=== PATIENT | male | born 2005 | race Caucasian/White ===

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

== ENCOUNTER 2023-05-03 11:01 | Emergency (ER) | payer MEDICAID ==
[~2023-05-03] VITALS: Ht 165.1 cm; Wt 73.4 kg
[~2023-05-03 11:01] MED LIST: ACET5SOL5 PO; AZIT200S47 PO; IBUP100S73 PO; MUPI2CRE17 EX
[2023-05-03 11:18] VITALS: PULSE 66; RESP 19; O2SAT 98
[2023-05-03 12:01] LABS: Basophils # (auto) 0 10 ^3/uL (0-0.2); Basophils % (auto) 0.2 % (0.0-2.0); Eosinophils # (auto) 0.1 10 ^3/uL (0-0.8); Eosinophils % (auto) 1.6 % (0.0-7.0); Hematocrit 37.2 % (41.0-53.0); Hemoglobin 12.8 g/dL (13.5-17.5); Lymphocytes # (auto) 2.9 10 ^3/uL (0.4-5.4); Lymphocytes % (auto) 34.8 % (10.0-50.0); Mean Corpuscular Hgb Conc. 34.4 g/dL (32.0-36.0); Mean Corpuscular Volume 95.9 fL (80.0-100.0); Monocytes # (auto) 0.7 10 ^3/uL (0-1.3); Monocytes % (auto) 8.6 % (0.0-12.0); Neutrophils # (auto) 4.6 10 ^3/uL (1.6-8.6); Neutrophils % (auto) 54.8 % (37.0-80.0); Nucleated Red Blood Cells % 0.1 %; Red Blood Cells 3.87 10^6/uL (4.5-5.90); Red Cell Distribution Width 16.6 % (11.8-14.3); White Blood Cell 8.4 10^3/uL (4.4-10.8)
[2023-05-03 12:15] LABS: Alanine Aminotransferase 23 U/L (7-40); Albumin 3.7 g/dL (3.2-4.8); Alkaline Phosphatase 51 U/L (46-116); Anion Gap 4 (5-15); Aspartate Aminotransferase 18 U/L (13-40); BUN/Creatinine Ratio 16.1 (10.0-20.0); Bilirubin, Total 0.7 mg/dL (0.2-1.0); Blood Urea Nitrogen 15 mg/dL (9-23); Calcium 8.9 mg/dL (8.7-10.4); Carbon Dioxide 32 mmol/L (20-30); Chloride 106 mmol/L (98-107); Glucose 133 mg/dL (74-106); Potassium 3.6 mmol/L (3.5-5.1); Sodium 142 mmol/L (136-145); Total Protein 6.7 g/dL (5.7-8.2)
[2023-05-03 13:20] VITALS: BP 124/84; PULSE 89; RESP 16; O2SAT 98
== END 2023-05-03 13:20 | disposition home or self-care (01) ==
LOC: ER 11:01
DX: F25.9 Schizoaffective disorder, unspecified (principal); R07.89 Other chest pain; Z79.1 Long term (current) use of non-steroidal anti-inflammatories (NSAID); Z79.2 Long term (current) use of antibiotics; Z79.899 Other long term (current) drug therapy
CPT/HCPCS: 36415; 71045; 80053; 85025

== ENCOUNTER 2023-06-17 17:50 | Emergency (ER) | payer MEDICAID ==
[~2023-06-17] VITALS: Ht 172.7 cm; Wt 100.0 kg
[2023-06-17] MEDS ORDERED: HALOPERIDOL 1 MG TAB PO ONE (21:15)
[2023-06-17] MEDS ORDERED: traZODone HCL 50 MG TAB PO ONE (21:15)
[2023-06-17 21:26] VITALS: BP 121/70; PULSE 102; RESP 15; TEMP 97.7; O2SAT 96
== END 2023-06-17 21:34 | disposition home or self-care (01) ==
LOC: ER 17:50 → EDBD 17:50 → ER 21:29
DX: S00.83XA Contusion of other part of head, initial encounter (principal); F84.0 Autistic disorder; Z79.1 Long term (current) use of non-steroidal anti-inflammatories (NSAID); Z79.899 Other long term (current) drug therapy; W22.8XXA Striking against or struck by other objects, initial encounter; Y93.89 Activity, other specified; Y92.89 Other specified places as the place of occurrence of the external cause; Y99.8 Other external cause status
CPT/HCPCS: 70486

== ENCOUNTER 2024-12-17 20:47 | Emergency (ER) | payer MEDICAID ==
[~2024-12-17] VITALS: Ht 177.8 cm; Wt 72.0 kg
[~2024-12-17 20:47] MED LIST changes: +ACET-2058 PO; -ACET5SOL5 PO; +IBUP-2008 PO; -IBUP100S73 PO
--- NOTE | 2024-12-17 23:13 | ED.PDOC ---
HPI Comments PT BIBA WITH CARE PROVIDER FOR CC OF R FOREARM LACERATION X THIS EVENING WITH BROKEN TOILET LID. PT ALSO SUSTAINED FOREHEAD SKIN ABRASION. DENIES NUMBNESS OR WEAKNESS OR ANY OTHER KNOWN INJURY. HISTORY OF AUTISM, CARE PROVIDER STATES PATIENT HAD A FIT. PATIENT APPROPRIATE AND COOPERATIVE AT THIS TIME Chief Complaint: Laceration Time Seen by MD: 21:04 Primary Care Provider: NONE Reviewed Notes: Nurses Notes, Medications, Allergies Allergies: Coded Allergies: NO KNOWN ALLERGIES (Unverified , 07/14/18) Home Meds Active Scripts Ibuprofen (Ibuprofen) 800 Mg Tab, 800 MG PO Q8HP PRN for 5 Days, #15 TAB Prov:DAVID PELLETIER [employer] 12/18/24 Amoxicillin & Pot Clavulanate (AUGMENTIN TABLET) 875 Mg Tb, 875 MG PO BID for 5 Days, #10 TAB Prov:DAVID PELLETIER [employer] 25 Acetaminophen (Acetaminophen) 160 Mg/5 Ml Mirela, 15 ML PO Q4HR, #480 ML Prov:PARAM MELENDEZ PAC 02/27/23 Ibuprofen (Ibuprofen Childrens) 100 Mg/5 Ml Naida, 400 MG PO Q4HP PRN, #480 ML Prov:PARAM MELENDEZ PAC 02/27/23 Mupirocin Calcium (Topical) (MUPIROCIN) 2 % Cre, 2 % EX TID for 10 Days, #60 GM Prov:PARAM MELENDEZ PAC 02/27/23 Azithromycin (Azithromycin) 200 Mg/5 Ml Naida, 7 ML PO DAILY for 5 Days, #30 ML Prov:PARAM MELENDEZ PAC 02/27/23 Information Source: Patient Mode of Arrival: EMS Complexity: Complex Laceration Length (cm): 2 Past Medical History PAST MEDICAL HISTORY: Denies Past Medical History (Other): Autism Surgical History: Denies all surgeries Family History Family History: Reviewed,noncontributory to illness, Family hx of HTN Social History Smoker: Non-Smoker Alcohol: Denies ETOH Use Drugs: Denies Drug Use Lives In: Other Constitutional: denies: chills, diaphoresis, fatigue, fever, malaise, sweats, weakness, others EENTM: denies: blurred vision, double vision, ear bleeding, ear discharge, ear drainage, ear pain, ear ringing, eye pain, eye redness, hearing loss, mouth pain, mouth swelling, nasal discharge, nose bleeding, nose congestion, nose pain, photophobia, tearing, throat pain, throat swelling, voice changes, others Respiratory: denies: cough, hemoptysis, orthopnea, SOB at rest, shortness of breath, SOB with excertion, stridor, wheezing, others Cardiovascular: denies: chest pain, dizzy spells, diaphoresis, Dyspnea on exertion, edema, irregular heart beat, left arm pain, lightheadedness, palpitations, PND, syncope, others Gastrointestinal: denies: abdomen distended, abdominal pain, blood streaked bowels, constipated, diarrhea, dysphagia, difficulty swallowing, hematemesis, melena, nausea, poor appetite, poor fluid intake, rectal bleeding, rectal pain, vomiting, others Genitourinary: denies: burning, dysuria, flank pain, frequency, hematuria, incontinence, penile discharge, penile sore, pain, testicle pain, testicle swelling, urgency, others Neurological: denies: dizziness, fainting, headache, left sided numbness, left sided weakness, numbness, paresthesia, pre-existing deficit, right sided numbness, right sided weakness, seizure, speech problems, tingling, tremors, weakness, others Musculoskeletal: denies: back pain, gout, joint pain, joint swelling, muscle pain, muscle stiffness, neck pain, others Integumetry: reports: laceration (Left mid forearm); denies: bruises, change in color, change in hair/nails, dryness, lesions, lumps, rash, wounds, others Allergic/Immunocompromised: denies: Difficulty Healing, Frequent Infections, Hives, Itching, others Hematologic/Lymphatic: denies: anemia, blood clots, easy bleeding, easy bruising, swollen glands, others Endocrine: denies: excessive hunger, excessive sweating, excessive thirst, excessive urination, flushing, intolerance to cold, intolerance to heat, unexplained weight gain, unexplained weight loss, others Psychiatric: denies: anxiety, bipolar disorder, depression, hopeless, panic disorder, schizophrenia, sleepless, suicidal, others Physical Exam General Appearance: No Apparent Distress, Normal HEENT: Head (Noted contusion forehead with superficial abrasion no noted laceration or bleeding), Normal ENT Inspection, Pharynx Normal, TMs Normal Neck: Full Range of Motion, Non-Tender, Normal, Normal Inspection Respiratory: Lungs Clear, No Respiratory Distress, Normal Breath Sounds Cardiovascular: No Murmur, Normal Peripheral Pulses, Regular Rate/Rhythm Breast Exam: Deferred Gastrointestinal: Non Tender, Soft Genitalia: Deferred Pelvic: Deferred Rectal: Deferred Extremities: Normal inspection, Normal range of motion Musculoskeletal : Apperance: Normal Neurologic: Alert, fish icer II-XII nml as Tested, No Motor Deficits, Normal Affect, Normal Mood, No Sensory Deficits Cerebellar Function: Normal Reflexes: Normal Skin: Dry, Lacerations (Full-thickness laceration to posterior mid forearm bleeding controlled no obvious foreign body), Normal Color, Warm Lymphatic: No Adenopathy Was a procedure done? Was a procedure done?: Yes Sedation Sedation?: No Informed consent obtained: Yes Laceration Repair : Location Right mid forearm posterior Length 2.5 cm Anesthetic: Lidocaine, Without epi Laceration Repair Prep: Saline, by Irrigation Laceration Repair Wound Comple: epidermis/dermis repair Laceration Repair: Number of sutures (Free internal absorbable sutures and 10 external sutures), Simple Informed consent obtained: Yes Risks, benefits, and alternati: Yes Notes Patient tolerated well with minimal blood loss Differential diagnosis Generic Laceration: Retained Foriegn Body, Neurovascular Injury, Tendon Injury, Avulsion X-Ray, Labs, Meds, VS Vital Signs Date Time Temp Pulse Resp B/P (MAP) Pulse Ox O2 Delivery O2 Flow Rate FiO2 12/17/24 23:15 98.1 101 19 123/94 (104) 98 98.1 12/17/24 23:15 101 19 98 Room Air 12/17/24 20:47 98.1 117 18 151/95 (113) 99 98.1 X-Ray, Labs, Meds, VS Comment See procedure note. X-ray of right forearm shows no acute fractures subluxations, dislocations, or foreign bodies mentioned. Script prophylactic antibiotics advised to take medications as prescribed side effects discussed. Suture removal in 5-7 days. Tdap reported less than 5 years ago. Wound cleansed and dressed. Return precautions given patient and care provider indicated understanding agree with discharge plan of care. Time of 1ST Reevaluation: 00:58 Reevaluation 1ST: Improved Patient Education/Counseling: Diagnosis, Treatment Family Education/Counseling: Diagnosis, Treatment, Prognosis, Need For Follow Up Departure 1 Departure Time of Disposition: 00:58 Impression: Primary Impression: Laceration of right forearm without complication Qualified Codes: S51.811A - Laceration without foreign body of right forearm, initial encounter Disposition: HOME / SELF CARE / HOMELESS Condition: Stable e-Prescriptions Ibuprofen (Ibuprofen) 800 Mg Tab 800 MG PO Q8HP PRN for 5 Days, #15 TAB Prov: DAVID PELLETIER 12/18/24 Amoxicillin & Pot Clavulanate (AUGMENTIN TABLET) 875 Mg Tb 875 MG PO BID for 5 Days, #10 TAB Prov: DAVID PELLETIER 12/18/24 Discharged With: Self Critical Care Note Critical Care Time?: No Stability Stability form required: No DAVID PELLETIER December 17, 2024 23:13
[2024-12-17 23:15] VITALS: BP 123/94; PULSE 101; RESP 19; TEMP 98.1; O2SAT 98
[2024-12-17] MEDS: LIDOCAINE 1% HCL (LOCAL ANESTH.) INJ 20ML MDV ID ONE (23:15)
--- NOTE | 2024-12-18 00:05 | DVH ---
EXAM: XY R FOREARM XRAY HISTORY: injury/pain COMPARISON: None TECHNIQUE: AP and lateral views of the right forearm were performed. Findings: There appears to be a laceration involving the forearm bones are normal and there is no foreign body IMPRESSION: 1. Soft tissue injury
[2024-12-18] MEDS ORDERED: AUG875T PO (01:00)
[2024-12-18] MEDS ORDERED: IBUP-1456 PO (01:08)
== END 2024-12-18 01:42 | disposition home or self-care (01) ==
LOC: ER 20:47 → EDBD 20:47 → EDUNIT# 20:47 → ER 12-18 01:20
DX: S51.811A Laceration without foreign body of right forearm, initial encounter (principal); X58.XXXA Exposure to other specified factors, initial encounter; Y93.89 Activity, other specified; Y99.8 Other external cause status; Y92.89 Other specified places as the place of occurrence of the external cause
CPT/HCPCS: 12001; 73090; 99283; J2003